=== PATIENT | male | born 1980 | race African-American/Black ===

== ENCOUNTER 2023-07-27 06:34 | Emergency (ER) | payer MEDICAID ==
[~2023-07-27] VITALS: Ht 172.7 cm; Wt 86.5 kg
[2023-07-27 06:46] VITALS: TEMP 97.6; O2SAT 100
[2023-07-27] MEDS ORDERED: KETOROLAC 30MG/ML VIAL IM ONE (11:30)
[2023-07-27 11:34] VITALS: BP 142/86; PULSE 90; RESP 18
[2023-07-27] MEDS ORDERED: IBUP-2028 MT (12:18)
== END 2023-07-27 12:27 | disposition home or self-care (01) ==
LOC: ER 06:56
DX: S20.219A Contusion of unspecified front wall of thorax, initial encounter (principal); S63.601A Unspecified sprain of right thumb, initial encounter; V49.9XXA Car occupant (driver) (passenger) injured in unspecified traffic accident, initial encounter; Y93.89 Activity, other specified; Y92.89 Other specified places as the place of occurrence of the external cause; Y99.8 Other external cause status
CPT/HCPCS: 71045; 73130; 96372; 99284; J1885; Z7610